=== PATIENT | male | born 1955 | race African-American/Black ===

== ENCOUNTER 2020-12-23 18:15 | Emergency (ER) | payer MEDICAID ==
[~2020-12-23] VITALS: Ht 2.5 cm; Wt 95.3 kg
[2020-12-23] MEDS ORDERED: IPRATROPIUM BROM 0.5 MG/2.5ML INH SOL NEB ONE (18:30)
[2020-12-23] MEDS ORDERED: ALBUTEROL SULF 2.5 MG/0.5ML(0.5%) NEB SOLN NEB ONE (18:30)
[2020-12-23 18:56] LABS: Basophils # (auto) 0 10 ^3/uL (0-0.2); Basophils % (auto) 0.6 % (0.0-2.0); Eosinophils # (auto) 0 10 ^3/uL (0-0.8); Eosinophils % (auto) 0.8 % (0.0-7.0); Hematocrit 45.7 % (41.0-53.0); Lymphocytes # (auto) 1.2 10 ^3/uL (0.4-5.4); Lymphocytes % (auto) 28.4 % (10.0-50.0); Mean Corpuscular Hemoglobin 29.5 pg (28.0-32.0); Mean Corpuscular Volume 84.2 fL (80.0-100.0); Monocytes # (auto) 0.4 10 ^3/uL (0-1.3); Monocytes % (auto) 9.7 % (0.0-12.0); Neutrophils # (auto) 2.5 10 ^3/uL (1.6-8.6); Neutrophils % (auto) 60.5 % (37.0-80.0); Nucleated Red Blood Cells % 0.2 %; Platelet Count (auto) 222 10^3/uL (140-450); Red Blood Cells 5.43 10^6/uL (4.5-5.90); Red Cell Distribution Width 13.8 % (11.8-14.3); White Blood Cell 4.2 10^3/uL (4.4-10.8)
[2020-12-23 19:11] LABS: INR 1.04 (0.9-1.15); Partial Thromboplastin Time 25.3 sec (23.0-31.2)
[2020-12-23 19:44] LABS: Alanine Aminotransferase 25 U/L (16-61); Alkaline Phosphatase 76 U/L (45-117); Anion Gap 6 (5-15); Aspartate Aminotransferase 22 U/L (15-37); BUN/Creatinine Ratio 8.6; Bilirubin, Total 1.1 mg/dL (0.2-1.0); Blood Urea Nitrogen 13 mg/dL (7-18); Calcium 10.5 mg/dL (8.5-10.1); Carbon Dioxide 30 mmol/L (21-32); Chloride 109 mmol/L (98-107); GFR African American 60 mL/min; GFR Non-African American 50 mL/min; Glucose 106 mg/dL (74-106); Potassium 4.3 mmol/L (3.5-5.1); Sodium 145 mmol/L (136-145); Total Protein 7.7 g/dL (6.4-8.2)
[2020-12-23 19:46] VITALS: BP 112/88
== END 2020-12-23 19:44 | disposition home or self-care (01) ==
LOC: ER 18:15
DX: J06.9 Acute upper respiratory infection, unspecified (principal)
CPT/HCPCS: 36415; 71045; 80053; 83880; 84484; 85025; 85379; 85610; 85730; 93005; 94640; 99285; J7644

== ENCOUNTER 2021-06-26 13:04 | Inpatient (IN) | payer MEDICAID ==
[~2021-06-26] VITALS: Ht 185.4 cm; Wt 93.0 kg
[2021-06-26] MEDS ORDERED: AZITHROMYCIN 500MG/ 250ML 250 ML IV ONE (13:30)
[2021-06-26] MEDS ORDERED: ASCORBIC ACID 500 MG TAB PO ONE (13:30)
[2021-06-26] MEDS ORDERED: CHOLECALCIFEROL (VITD3) 2,000 UNIT CAP/TAB PO ONE (13:30)
[2021-06-26] MEDS ORDERED: methylPREDNISolone SOD SUCC 125 MG/2 ML VL IV ONE (13:30)
[2021-06-26] MEDS ORDERED: ZINC SULFATE 220mg CAP or TAB PO ONE (13:30)
[2021-06-26 15:32] LABS: Hematocrit 49.1 % (41.0-53.0); Hemoglobin 16.8 g/dL (13.5-17.5); Mean Corpuscular Hemoglobin 28.7 pg (28.0-32.0); Mean Corpuscular Hgb Conc. 34.3 g/dL (32.0-36.0); Mean Corpuscular Volume 83.8 fL (80.0-100.0); Red Blood Cells 5.85 10^6/uL (4.5-5.90); Red Cell Distribution Width 13.4 % (11.8-14.3); White Blood Cell 2.9 10^3/uL (4.4-10.8)
[2021-06-26 15:51] LABS: Potassium 4.2 mmol/L (3.5-5.1)
[2021-06-26 16:02] LABS: Albumin 3.7 g/dL (3.4-5.0); Bilirubin, Total 1.2 mg/dL (0.2-1.0); CRP High Sensitivity 1.98 mg/dL (< 0.3); Calcium 8.5 mg/dL (8.5-10.1); Total Protein 7.2 g/dL (6.4-8.2)
[2021-06-26 16:16] LABS: Basophils % (manual) 0 (0.0-2.0); Blast Cells 0; Eosinophils % (manual) 0 (0-7); Metamyelocytes % 0; Myelocytes % 0; Promyelocytes % 0; Reactive Lymphocytes 0
[2021-06-26 18:06] LABS: Band Neutrophils % (manual) 3; Lymphocytes % (manual) 21 (10.0-50.0); Monocytes % (manual) 5 (0-12)
[2021-06-26] MEDS ORDERED: MORPHINE SULFATE INJECTION 2 MG/ML SYRG IV PRN ×3 (19:00→21:30)
[2021-06-26] MEDS ORDERED: NITROGLYCERIN 0.4 MG SL TAB SL PRN ×2 (19:00→21:30)
[2021-06-26] MEDS ORDERED: ONDANSETRON HCL 4 MG/2 ML VIAL IV PRN (21:30)
[2021-06-26] MEDS ORDERED: HYDROcodone-ACET 5/325MG TAB PO PRN (21:30)
[2021-06-26] MEDS ORDERED: ACETAMINOPHEN 325 MG TAB PO PRN (21:30)
[2021-06-26] MEDS ORDERED: hydrALAZINE HCL 20 MG/ML VL IV PRN (21:30)
[2021-06-26] MEDS ORDERED: FAMOTIDINE (10MG/ML) 2ML VL IV ONE (21:30)
[2021-06-26] MEDS ORDERED: ALUM & MAG HYDROX-SIMETH LIQ(MAALOX) 30 ML PO PRN (21:30)
[2021-06-26] MEDS ORDERED: ACETAMINOPHEN 500 MG TAB PO PRN (21:30)
[2021-06-26] MEDS ORDERED: ALBUTEROL SULF HFA 90MCG INH 200DOSE IN PRN (21:30)
[2021-06-26] MEDS ORDERED: DOCUSATE SOD 100 MG CAP PO PRN (21:30)
[2021-06-26] MEDS: SODIUM CHLORIDE 0.9% 1,000 ML IV SCH (21:30)
[2021-06-26] MEDS ORDERED: LORazepam 0.5 MG TAB PO PRN (21:30)
[2021-06-26] MEDS ORDERED: REMDESIVIR PER PHARMACY 0 ML IV SCH (21:30)
[2021-06-26 22:00] VITALS: BP 115/59
[2021-06-26] MEDS: BUDESONIDE (INHALATION) 180 MCG IH IN SCH (22:00)
[2021-06-26] MEDS: ENOXAPARIN SOD 40 MG/0.4 ML SYRINGE SC SCH (22:00)
[2021-06-26] MEDS: ATORVASTATIN 20 MG TAB PO SCH (22:00)
[2021-06-26] MEDS ORDERED: REMDESIVIR 200 MG in NS 210ml LOADING DOSE ADULT IV ONE (22:45)
[2021-06-27 00:22] LABS: Hemoglobin 15.5 g/dL (13.5-17.5); Red Cell Distribution Width 13.5 % (11.8-14.3)
[2021-06-27 00:27] LABS: Hematocrit 46.2 % (41.0-53.0); Mean Corpuscular Hemoglobin 28.5 pg (28.0-32.0); Mean Corpuscular Hgb Conc. 33.6 g/dL (32.0-36.0); Mean Corpuscular Volume 84.8 fL (80.0-100.0); Red Blood Cells 5.44 10^6/uL (4.5-5.90)
[2021-06-27 00:38] LABS: Basophils % (manual) 0 (0.0-2.0); Blast Cells 0; Eosinophils % (manual) 0 (0-7); Myelocytes % 0; Promyelocytes % 0; White Blood Cell 1.8 10^3/uL (4.4-10.8)
[2021-06-27 01:05] LABS: Albumin 3.2 g/dL (3.4-5.0); Calcium 8.5 mg/dL (8.5-10.1); Magnesium 2.9 mg/dL (1.6-2.6)
[2021-06-27 01:14] LABS: Bilirubin, Total 1.1 mg/dL (0.2-1.0); CRP High Sensitivity 2.65 mg/dL (< 0.3); Potassium 4.3 mmol/L (3.5-5.1); Total Protein 7.5 g/dL (6.4-8.2)
[2021-06-27 01:20] LABS: BUN/Creatinine Ratio 16.1
[2021-06-27 01:27] LABS: Thyroid Stimulating Hormone 0.14 uIU/mL (0.358-3.74)
[2021-06-27 01:43] LABS: Metamyelocytes % 1; Reactive Lymphocytes 1
[2021-06-27 01:44] LABS: Band Neutrophils % (manual) 14
[2021-06-27 01:45] LABS: Lymphocytes % (manual) 20 (10.0-50.0); Monocytes % (manual) 9 (0-12)
[2021-06-27 02:27] VITALS: BP 115/59
[2021-06-27 05:00] VITALS: BP 124/69
[2021-06-27 06:42] LABS: Urine Bacteria NONE SEEN /hpf (None Seen); Urine Blood Negative /uL (Negative); Urine Hyaline Cast FEW /lpf (0 - 2); Urine Mucus FEW (None Seen); Urine Specific Gravity 1.025 (1.001-1.035); Urine WBC 1 /hpf (0 - 3)
[2021-06-27 06:42] LABS: Hematocrit 48.3 % (41.0-53.0); Hemoglobin 16.3 g/dL (13.5-17.5); Mean Corpuscular Hemoglobin 28.6 pg (28.0-32.0); Mean Corpuscular Hgb Conc. 33.9 g/dL (32.0-36.0); Mean Corpuscular Volume 84.5 fL (80.0-100.0); Red Blood Cells 5.71 10^6/uL (4.5-5.90); Red Cell Distribution Width 13.4 % (11.8-14.3)
[2021-06-27 06:51] LABS: INR 1.01 (0.9-1.15); Partial Thromboplastin Time 36.8 sec (23.6-33.0)
[2021-06-27 07:03] LABS: Amphetamine Screen, Urine NEGATIVE (NEGATIVE); Barbiturate Scree,Urine NEGATIVE (NEGATIVE); Benzodiazephine Screen, Urine NEGATIVE (NEGATIVE); Cannabinoid Screen, Urine NEGATIVE (NEGATIVE); Cocaine Screen, Urine NEGATIVE (NEGATIVE); Opiate Scree,Urine NEGATIVE (NEGATIVE); Phencyclidine Screen, Urine NEGATIVE (NEGATIVE)
[2021-06-27 07:03] LABS: Potassium 4.3 mmol/L (3.5-5.1)
[2021-06-27 07:12] LABS: Albumin 3.3 g/dL (3.4-5.0); BUN/Creatinine Ratio 18.8; Calcium 8.7 mg/dL (8.5-10.1); Phosphorus 3.4 mg/dL (2.5-4.90); Total Protein 7.6 g/dL (6.4-8.2); Uric Acid 5.6 mg/dL (3.5-7.2)
[2021-06-27 07:13] LABS: White Blood Cell 1.7 10^3/uL (4.4-10.8)
[2021-06-27 07:14] LABS: Basophils % (manual) 0 (0.0-2.0); Blast Cells 0; Eosinophils % (manual) 0 (0-7); Metamyelocytes % 0; Myelocytes % 0; Promyelocytes % 0; Reactive Lymphocytes 0
[2021-06-27 09:00] VITALS: BP 121/69
[2021-06-27 09:01] LABS: Band Neutrophils % (manual) 7; Lymphocytes % (manual) 48 (10.0-50.0); Monocytes % (manual) 7 (0-12)
[2021-06-27] MEDS: BUDESONIDE (INHALATION) 180 MCG IH IN SCH ×2 (09:19→21:30)
[2021-06-27] MEDS: DexAMETHasone SOD PHOS 10MG/1ML VIAL INJ IV SCH (10:25)
[2021-06-27] MEDS: FAMOTIDINE (10MG/ML) 2ML VL IV SCH ×2 (10:26→22:48)
[2021-06-27] MEDS: AZITHROMYCIN 500MG/ 250ML 250 ML IV SCH (10:26)
[2021-06-27] MEDS: ASPirin 81 mg TAB PO SCH (10:26)
[2021-06-27] MEDS: ZINC SULFATE 220mg CAP or TAB PO SCH (10:26)
[2021-06-27] MEDS: ASCORBIC ACID 1,000 MG TAB PO SCH (10:27)
[2021-06-27] MEDS: ENOXAPARIN SOD 40 MG/0.4 ML SYRINGE SC SCH ×2 (10:27→22:49)
[2021-06-27] MEDS: CHOLECALCIFEROL (VITD3) 2,000 UNIT CAP/TAB PO SCH (10:27)
[2021-06-27] MEDS: IVERMECTIN 3 MG TAB PO SCH (11:47)
[2021-06-27 13:00] VITALS: BP 148/93
[2021-06-27] MEDS: SODIUM CHLORIDE 0.9% 1,000 ML IV SCH (14:10)
[2021-06-27] MEDS ORDERED: REMDESIVIR 100mg 100 MG in SODIUM CHL 0.9% 230 ML IV SCH (15:00)
[2021-06-27] MEDS ORDERED: REMDESIVIR 200 MG in NS 210ml LOADING DOSE ADULT IV ONE (15:00)
[2021-06-27] MEDS ORDERED: DEXTROSE (50%) 50ML SYRG IV PRN (16:45)
[2021-06-27] MEDS: InsuLIN REG 1unit/0.01ml Soln (100units/ml) SC SCH (18:00)
[2021-06-27] MEDS: ACCU-CHEK COMFORT CURVE STRIP VI SCH (18:07)
[2021-06-27 22:00] VITALS: BP 107/60
[2021-06-27] MEDS: ATORVASTATIN 20 MG TAB PO SCH (22:48)
[2021-06-28 05:00] VITALS: BP 127/64
[2021-06-28 05:58] LABS: Basophils # (auto) 0 10 ^3/uL (0-0.2); Basophils % (auto) 0.3 % (0.0-2.0); Eosinophils # (auto) 0 10 ^3/uL (0-0.8); Hematocrit 44.4 % (41.0-53.0); Hemoglobin 14.8 g/dL (13.5-17.5); Lymphocytes # (auto) 0.7 10 ^3/uL (0.4-5.4); Lymphocytes % (auto) 12.6 % (10.0-50.0); Mean Corpuscular Hemoglobin 28.1 pg (28.0-32.0); Mean Corpuscular Hgb Conc. 33.4 g/dL (32.0-36.0); Mean Corpuscular Volume 84.2 fL (80.0-100.0); Monocytes # (auto) 0.4 10 ^3/uL (0-1.3); Monocytes % (auto) 8.3 % (0.0-12.0); Neutrophils # (auto) 4.1 10 ^3/uL (1.6-8.6); Neutrophils % (auto) 78.8 % (37.0-80.0); Red Blood Cells 5.27 10^6/uL (4.5-5.90); Red Cell Distribution Width 13.6 % (11.8-14.3); White Blood Cell 5.2 10^3/uL (4.4-10.8)
[2021-06-28] MEDS: InsuLIN REG 1unit/0.01ml Soln (100units/ml) SC SCH ×4 (06:00→17:38)
[2021-06-28] MEDS: ACCU-CHEK COMFORT CURVE STRIP VI SCH ×4 (06:06→17:38)
[2021-06-28 06:17] LABS: Albumin 2.9 g/dL (3.4-5.0); Calcium 8.4 mg/dL (8.5-10.1); Potassium 4.6 mmol/L (3.5-5.1)
[2021-06-28 06:19] LABS: BUN/Creatinine Ratio 19.7
[2021-06-28] MEDS: SODIUM CHLORIDE 0.9% 1,000 ML IV SCH ×2 (06:50→11:14)
[2021-06-28 09:17] VITALS: BP 96/59
[2021-06-28] MEDS: AZITHROMYCIN 500MG/ 250ML 250 ML IV SCH (09:48)
[2021-06-28] MEDS: DexAMETHasone SOD PHOS 10MG/1ML VIAL INJ IV SCH (09:48)
[2021-06-28] MEDS: FAMOTIDINE (10MG/ML) 2ML VL IV SCH ×2 (09:48→22:33)
[2021-06-28] MEDS: CHOLECALCIFEROL (VITD3) 2,000 UNIT CAP/TAB PO SCH (09:49)
[2021-06-28] MEDS: ASCORBIC ACID 1,000 MG TAB PO SCH (09:49)
[2021-06-28] MEDS: ENOXAPARIN SOD 40 MG/0.4 ML SYRINGE SC SCH ×2 (09:49→22:33)
[2021-06-28] MEDS: ZINC SULFATE 220mg CAP or TAB PO SCH (09:49)
[2021-06-28] MEDS: IVERMECTIN 3 MG TAB PO SCH (09:49)
[2021-06-28] MEDS: ASPirin 81 mg TAB PO SCH (09:49)
[2021-06-28] MEDS: BUDESONIDE (INHALATION) 180 MCG IH IN SCH (10:00)
[2021-06-28] MEDS ORDERED: FUROSEMIDE 20 MG/2 ML VIAL IV ONE (11:15)
[2021-06-28 13:00] VITALS: BP 114/66
[2021-06-28] MEDS ORDERED: REMDESIVIR 100mg 100 MG in SODIUM CHL 0.9% 230 ML IV SCH (15:00)
[2021-06-28 17:00] VITALS: BP 124/81
[2021-06-28 22:00] VITALS: BP 103/71
[2021-06-29] MEDS: ACCU-CHEK COMFORT CURVE STRIP VI SCH ×4 (00:33→17:02)
[2021-06-29 05:00] VITALS: BP 106/62
[2021-06-29] MEDS: InsuLIN REG 1unit/0.01ml Soln (100units/ml) SC SCH ×4 (06:00→17:02)
[2021-06-29 07:21] LABS: Potassium 4.9 mmol/L (3.5-5.1)
[2021-06-29 07:26] LABS: BUN/Creatinine Ratio 25.7; Calcium 8.4 mg/dL (8.5-10.1); Magnesium 2.6 mg/dL (1.6-2.6)
[2021-06-29] MEDS: SODIUM CHLORIDE 0.9% 1,000 ML IV SCH (08:01)
[2021-06-29] MEDS: ZINC SULFATE 220mg CAP or TAB PO SCH (08:49)
[2021-06-29] MEDS: FAMOTIDINE (10MG/ML) 2ML VL IV SCH ×2 (08:49→22:22)
[2021-06-29] MEDS: IVERMECTIN 3 MG TAB PO SCH (08:49)
[2021-06-29] MEDS: DexAMETHasone SOD PHOS 10MG/1ML VIAL INJ IV SCH (08:49)
[2021-06-29] MEDS: ASPirin 81 mg TAB PO SCH (08:49)
[2021-06-29] MEDS: ENOXAPARIN SOD 40 MG/0.4 ML SYRINGE SC SCH ×2 (08:50→22:23)
[2021-06-29] MEDS: CHOLECALCIFEROL (VITD3) 2,000 UNIT CAP/TAB PO SCH (08:50)
[2021-06-29] MEDS: ASCORBIC ACID 1,000 MG TAB PO SCH (08:50)
[2021-06-29 09:00] VITALS: BP 119/68
[2021-06-29] MEDS ORDERED: AZITHROMYCIN 250 MG TAB PO SCH (10:00)
[2021-06-29 13:00] VITALS: BP 106/61
[2021-06-29] MEDS ORDERED: DOXYCYCLINE 100 MG TAB/CAP PO ONE (13:30)
[2021-06-29 17:02] VITALS: BP 100/64
[2021-06-29 22:00] VITALS: BP 114/67
[2021-06-29] MEDS: DOXYCYCLINE 100 MG TAB/CAP PO SCH (22:22)
[2021-06-30] VITALS (7 sets, daily range): BP systolic 98–145; BP diastolic 62–77
[2021-06-30] MEDS: ACCU-CHEK COMFORT CURVE STRIP VI SCH ×4 (00:21→17:48)
[2021-06-30] MEDS: SODIUM CHLORIDE 0.9% 1,000 ML IV SCH (03:15)
[2021-06-30] MEDS: InsuLIN REG 1unit/0.01ml Soln (100units/ml) SC SCH ×5 (05:51→21:09)
[2021-06-30 06:26] LABS: Calcium 8.7 mg/dL (8.5-10.1); Potassium 4.5 mmol/L (3.5-5.1)
[2021-06-30 06:38] LABS: Albumin 3.1 g/dL (3.4-5.0); BUN/Creatinine Ratio 24.8; CRP High Sensitivity 4.22 mg/dL (< 0.3); Total Protein 6.8 g/dL (6.4-8.2)
[2021-06-30] MEDS: DexAMETHasone SOD PHOS 10MG/1ML VIAL INJ IV SCH (09:35)
[2021-06-30] MEDS: FAMOTIDINE (10MG/ML) 2ML VL IV SCH ×2 (09:35→21:08)
[2021-06-30] MEDS: ZINC SULFATE 220mg CAP or TAB PO SCH (09:40)
[2021-06-30] MEDS: IVERMECTIN 3 MG TAB PO SCH (09:40)
[2021-06-30] MEDS: DOXYCYCLINE 100 MG TAB/CAP PO SCH ×2 (09:40→21:09)
[2021-06-30] MEDS: ASPirin 81 mg TAB PO SCH (09:40)
[2021-06-30] MEDS: CHOLECALCIFEROL (VITD3) 2,000 UNIT CAP/TAB PO SCH (09:41)
[2021-06-30] MEDS: ASCORBIC ACID 1,000 MG TAB PO SCH (09:41)
[2021-06-30] MEDS: ENOXAPARIN SOD 40 MG/0.4 ML SYRINGE SC SCH ×2 (09:41→21:09)
[2021-06-30] MEDS ORDERED: FUROSEMIDE 20 MG/2 ML VIAL IV ONE (14:45)
[2021-06-30] MEDS ORDERED: DOXY-286 PO (15:45)
[2021-06-30] MEDS ORDERED: ALBUAER3 IN (15:45)
[2021-06-30] MEDS ORDERED: ASPI-378 PO (15:45)
[2021-06-30] MEDS ORDERED: CHOL20007 PO (15:45)
[2021-06-30] MEDS ORDERED: DEX4T PO (15:45)
[2021-06-30] MEDS ORDERED: ASCO10003 PO (15:45)
[2021-06-30] MEDS ORDERED: FAMO20TA10 PO (15:45)
[2021-06-30] MEDS ORDERED: ZINC220T6 PO (15:45)
[2021-06-30] MEDS ORDERED: BUDE2SUS3 IN (15:45)
[2021-06-30] MEDS ORDERED: IVER3TAB PO (15:46)
[2021-07-01 05:00] VITALS: BP 125/73
[2021-07-01] MEDS: ACCU-CHEK COMFORT CURVE STRIP VI SCH ×4 (06:00→18:00)
[2021-07-01] MEDS: InsuLIN REG 1unit/0.01ml Soln (100units/ml) SC SCH ×3 (06:00→18:00)
[2021-07-01 09:00] VITALS: BP 114/74
[2021-07-01] MEDS: FAMOTIDINE (10MG/ML) 2ML VL IV SCH ×2 (09:28→21:49)
[2021-07-01] MEDS: ZINC SULFATE 220mg CAP or TAB PO SCH (09:28)
[2021-07-01] MEDS: DexAMETHasone SOD PHOS 10MG/1ML VIAL INJ IV SCH (09:28)
[2021-07-01] MEDS: ASPirin 81 mg TAB PO SCH (09:28)
[2021-07-01] MEDS: IVERMECTIN 3 MG TAB PO SCH (09:28)
[2021-07-01] MEDS: DOXYCYCLINE 100 MG TAB/CAP PO SCH ×2 (09:29→21:50)
[2021-07-01] MEDS: CHOLECALCIFEROL (VITD3) 2,000 UNIT CAP/TAB PO SCH (09:29)
[2021-07-01] MEDS: ASCORBIC ACID 1,000 MG TAB PO SCH (09:29)
[2021-07-01] MEDS: ENOXAPARIN SOD 40 MG/0.4 ML SYRINGE SC SCH ×2 (10:00→21:50)
[2021-07-01 13:00] VITALS: BP 111/73
[2021-07-01 16:34] VITALS: BP 140/74
[2021-07-01 22:00] VITALS: BP 148/83
[2021-07-02] MEDS: ACCU-CHEK COMFORT CURVE STRIP VI SCH ×3 (00:25→12:09)
[2021-07-02 05:00] VITALS: BP 140/87
[2021-07-02] MEDS: InsuLIN REG 1unit/0.01ml Soln (100units/ml) SC SCH ×3 (06:00→12:00)
[2021-07-02 08:00] VITALS: BP 104/68
[2021-07-02 08:49] VITALS: BP 111/71
[2021-07-02] MEDS: DexAMETHasone SOD PHOS 10MG/1ML VIAL INJ IV SCH (09:33)
[2021-07-02] MEDS: CHOLECALCIFEROL (VITD3) 2,000 UNIT CAP/TAB PO SCH (09:34)
[2021-07-02] MEDS: FAMOTIDINE (10MG/ML) 2ML VL IV SCH ×2 (09:34→22:02)
[2021-07-02] MEDS: ENOXAPARIN SOD 40 MG/0.4 ML SYRINGE SC SCH ×2 (09:34→22:03)
[2021-07-02] MEDS: ASCORBIC ACID 1,000 MG TAB PO SCH (09:34)
[2021-07-02] MEDS: ZINC SULFATE 220mg CAP or TAB PO SCH (09:34)
[2021-07-02] MEDS: ASPirin 81 mg TAB PO SCH (09:34)
[2021-07-02] MEDS: DOXYCYCLINE 100 MG TAB/CAP PO SCH ×2 (09:34→22:02)
[2021-07-02 13:00] VITALS: BP 115/74
[2021-07-02 17:00] VITALS: BP 111/70
[2021-07-02 22:14] VITALS: BP 131/71
[2021-07-03 05:23] VITALS: BP 115/71
[2021-07-03 08:00] VITALS: BP 105/58
[2021-07-03 09:00] VITALS: BP 105/58
[2021-07-03] MEDS: FAMOTIDINE (10MG/ML) 2ML VL IV SCH (10:11)
[2021-07-03] MEDS: ASPirin 81 mg TAB PO SCH (10:11)
[2021-07-03] MEDS: DexAMETHasone SOD PHOS 10MG/1ML VIAL INJ IV SCH (10:11)
[2021-07-03] MEDS: DOXYCYCLINE 100 MG TAB/CAP PO SCH (10:11)
[2021-07-03] MEDS: ZINC SULFATE 220mg CAP or TAB PO SCH (10:11)
[2021-07-03] MEDS: ASCORBIC ACID 1,000 MG TAB PO SCH (10:12)
[2021-07-03] MEDS: CHOLECALCIFEROL (VITD3) 2,000 UNIT CAP/TAB PO SCH (10:12)
[2021-07-03] MEDS: ENOXAPARIN SOD 40 MG/0.4 ML SYRINGE SC SCH (10:12)
[2021-07-03 12:46] VITALS: BP 123/79
[2021-07-03 16:06] VITALS: BP 104/68
[2021-07-03 16:53] VITALS: BP 112/68
== END 2021-07-03 18:00 | disposition home or self-care (01) | DRG 720 ==
LOC: ER 13:04 → TELE 18:50 → TELE-EAST 20:10
PROVIDERS: ADMIT Hospitalist; ATTEND Internal Medicine
PROC: XW033E5 Introduction of Remdesivir Anti-infective into Peripheral Vein, Percutaneous Approach, New Technology Group 5 (ICD-10-PCS; principal; 2021-06-26)
DX: A41.89 Other specified sepsis (principal); J96.01 Acute respiratory failure with hypoxia; J12.82 Pneumonia due to coronavirus disease 2019; N17.0 Acute kidney failure with tubular necrosis; U07.1 COVID-19; D89.839 Cytokine release syndrome, grade unspecified; K75.81 Nonalcoholic steatohepatitis (NASH); R73.03 Prediabetes; E55.9 Vitamin D deficiency, unspecified; N18.2 Chronic kidney disease, stage 2 (mild); R79.89 Other specified abnormal findings of blood chemistry; Z53.29 Procedure and treatment not carried out because of patient's decision for other reasons; E78.5 Hyperlipidemia, unspecified; F12.90 Cannabis use, unspecified, uncomplicated; Z80.9 Family history of malignant neoplasm, unspecified; Z83.3 Family history of diabetes mellitus
CPT/HCPCS: 36415; 36600; 71045; 76705; 80048; 80053; 80061; 80307; 81001; 82306; 82728; 82805; 82962; 83036; 83605; 83615; 83735; 83880; 84100; 84443; 84484; 84550; 85007; 85025; 85027; 85379; 85610; 85730; 86141; 87040; 87086; 87426; 93005; 96365; 96375; G0378; J1100; J1815; J3490

== ENCOUNTER 2021-10-07 07:09 | Emergency (ER) | payer MEDICAID ==
[~2021-10-07] VITALS: Ht 188 cm; Wt 102.1 kg
[~2021-10-07 07:09] MED LIST: ALBUAER3 IN; ASCO10003 PO; ASPI-378 PO; BUDE2SUS3 IN; DEX4T PO; DOXY-286 PO; IVER3TAB PO; ZINC220T6 PO
[2021-10-07 07:18] VITALS: BP 178/99
[2021-10-07] MEDS ORDERED: IBUPROFEN 800 MG TAB PO ONE (07:45)
[2021-10-07] MEDS ORDERED: IBUP800T27 PO (07:48)
== END 2021-10-07 08:14 | disposition home or self-care (01) ==
LOC: ER 07:09 → EDBD 07:09 → ER 08:14
DX: S90.02XA Contusion of left ankle, initial encounter (principal); W18.39XA Other fall on same level, initial encounter; Y93.89 Activity, other specified; Y92.89 Other specified places as the place of occurrence of the external cause; Y99.8 Other external cause status
CPT/HCPCS: 73610